=== PATIENT | female | born 1940 | race Caucasian/White ===

== ENCOUNTER 2020-05-24 19:51 | Emergency (ER) | payer OTHER ==
[~2020-05-24] VITALS: Ht 160 cm; Wt 69.4 kg
[2020-05-24] MEDS ORDERED: ATORVASTATIN CA20 MG (20:38)
[2020-05-24] MEDS ORDERED: ANASTROZOLE1 MG PO (20:38)
[2020-05-24] MEDS ORDERED: AMLODIPINE-OLM1 EACH PO (20:38)
[2020-05-24] MEDS ORDERED: TENORMIN100 M1 PO (20:38)
[2020-05-24] MEDS ORDERED: B COMPLEX1 EACH PO (20:39)
[2020-05-24] MEDS ORDERED: LEXAPRO5 MG PO (20:39)
[2020-05-24] MEDS ORDERED: COZAAR100 MG PO (20:39)
[2020-05-24] MEDS ORDERED: SYNTHROID50 MCG PO (20:39)
== END 2020-05-24 21:44 | disposition home or self-care (01) ==
LOC: ER 19:51
DX: M62.830 Muscle spasm of back (principal)

== ENCOUNTER 2020-09-19 12:10 | Emergency (ER) | payer OTHER ==
[~2020-09-19] VITALS: Ht 162.6 cm; Wt 64.4 kg
[~2020-09-19 12:10] MED LIST: AMLODIPINE-OLM1 EACH PO; ANASTROZOLE1 MG PO; ATORVASTATIN CA20 MG; B COMPLEX1 EACH PO; COZAAR100 MG PO; LEXAPRO5 MG PO; SYNTHROID50 MCG PO; TENORMIN100 M1 PO
== END 2020-09-19 18:09 | disposition home or self-care (01) ==
LOC: ER 12:10
DX: K29.60 Other gastritis without bleeding (principal); R11.11 Vomiting without nausea; Z03.818 Encounter for observation for suspected exposure to other biological agents ruled out

== ENCOUNTER 2022-05-19 11:40 | Outpatient (CLI) | payer OTHER | END 2022-05-19 11:41 | disposition home or self-care (01) | LOC: LAB 11:40 | PROVIDERS: ATTEND Internal Medicine | DX: I11.9 Hypertensive heart disease without heart failure (principal); E78.00 Pure hypercholesterolemia, unspecified; N18.31 Chronic kidney disease, stage 3a ==

== ENCOUNTER 2022-05-21 07:51 | Outpatient (CLI) | payer OTHER | END 2022-05-21 08:00 | disposition home or self-care (01) | LOC: LAB 07:51 | PROVIDERS: ATTEND Internal Medicine | DX: I11.9 Hypertensive heart disease without heart failure (principal); E78.00 Pure hypercholesterolemia, unspecified; N18.31 Chronic kidney disease, stage 3a ==

== ENCOUNTER 2022-07-12 08:42 | Outpatient (CLI) | payer OTHER | END 2022-07-12 08:55 | disposition home or self-care (01) | LOC: MRI 08:42 | PROVIDERS: ATTEND Internal Medicine | DX: M54.17 Radiculopathy, lumbosacral region (principal) | CPT/HCPCS: 72148 ==

== ENCOUNTER 2022-09-13 09:26 | Outpatient (CLI) | payer OTHER | END 2022-09-13 09:28 | disposition home or self-care (01) | LOC: RAD 09:26 | PROVIDERS: ATTEND Internal Medicine | DX: Z12.31 Encounter for screening mammogram for malignant neoplasm of breast (principal); N63.0 Unspecified lump in unspecified breast ==